=== PATIENT | female | born 1950 | race Caucasian/White ===

== ENCOUNTER → 2017-07-19 | Outpatient (CLI) | payer OTHER ==
[~2017-07-19] MED LIST: ALDA25TA2 OR; CETI10TA OR; CORE6.25 OR; GLIP5TAB2 OR; GLUC500T OR; LASI20TA OR; LISI5TAB OR; NASACORT INH; ZOCO40TA OR; [UNRECOGNIZED DRUG - OTHER] OR
--- NOTE | 2017-07-19 09:26 | REPMRS ---
Patient History The patient states she has not had a clinical breast exam in over a year. No known family history of cancer. Digital Woman Screen Mammo: July 19, 2017 - Exam #: [id number] Bilateral CC and MLO view(s) were taken. Technologist: Mirella Serrano, Technologist Prior study comparison: August 10, 2013, bilateral bilat screen digital mammo, performed at [facility] ([facility]). August 15, 2012, right breast digital mammo diagnostic unilateral, performed at [facility]. FINDINGS: There are scattered fibroglandular densities. There has been no change in the appearance of the mammogram from the prior studies. There is a mild amount of residual fibroglandular tissue which is fairly symmetric. There is no interval development of dominant mass, architectural distortion, or clustered microcalcification suggestive of malignancy. ASSESSMENT: BI-RADS/ACR category 1 mammogram. Negative. Recommendation Routine screening mammogram in 1 year (for women over age 40). This mammogram was interpreted with the aid of an FDA-approved computer-aided dectection system. Electronically Signed By: William Karimi MD 07/19/17 0956
== END ==
LOC: M WHC 07:44
PROVIDERS: ATTEND Registered Nurse Diabetes Educator
DX: Z12.31 Encounter for screening mammogram for malignant neoplasm of breast (principal)